=== PATIENT | female | born 1995 | race African-American/Black ===

== ENCOUNTER 2017-01-24 17:14 | Emergency (ER) | payer OTHER ==
[2017-01-24 17:19] VITALS: BP 111/83; PULSE 86; TEMP 98.7; BMI 21.4
[2017-01-24] MEDS ORDERED: ONDANSETRON 4 MG/2 ML VIAL IVPB ONE (17:51)
[2017-01-24 17:54] LABS: PH,URINE 6.5 (4.5-8); URINE APPEARANCE Clear; URINE BILIRUBIN Negative (NEGATIVE); URINE BLOOD Trace-intact (NEGATIVE); URINE GLUCOSE (UA) Negative (NEGATIVE); URINE KETONE Negative (NEGATIVE); URINE LEUK ESTERASE Negative (NEGATIVE); URINE NITRITE Negative (NEGATIVE); URINE PROTEIN Negative (NEGATIVE); URINE UROBILINOGEN 0.2 E.U/dl (0.2-1.0)
--- NOTE | 2017-01-24 17:55 | PDOC ---
History of Present Illness <Miles Ventura - Last Filed: 01/24/17 17:56> - History of Present Illness Initial Comments: 01/24/17 17:56 - History of Present Illness Initial Comments: 01/24/17 17:56 The patient is a 21 year old female, [facility] [facility] [facility] with a significant past medical history of tonsillitis who presents to the emergency department with nausea/vomiting since yesterday. The patient reports yesterday morning waking up with a nauseous feeling that has progressively worsened since its onset. She reports later that night eating baked ziti, and soon after vomiting ( only one episode) her food. She c/o continuing to feel nauseated. She denies recent diarrhea or constipation. She reports her roommate has been having similar symptoms. The patient also has chief complaints of allergies with the development of rashes, watery/itchy eyes,and itchy throat. The patient reports having these symptoms intermittently since September with no alf alleviation. She denies recent fevers, chills, headache or dizziness. Allergies: NKA Past surgical history: None reported. Social history: Current smoker. Denies EtOH use and drug use. <Miles Ventura - Last Filed: 01/24/17 17:56> <Linda Severino - Last Filed: 01/25/17 21:53> - General Chief Complaint: Nausea/Vomiting Stated Complaint: VOMITING,ALLERGY Time Seen by Provider: 01/24/17 17:22 Past History <Miles Ventura - Last Filed: 01/24/17 17:56> - Past Medical History Other medical history: PT DENIES - Psycho/Social/Smoking Cessation Hx Anxiety: No Suicidal Ideation: No Smoking History: Current every day smoker Have you smoked in the past 12 months: No Number of Cigarettes Smoked Daily: 5 Information on smoking cessation initiated: Yes 'Breaking Loose' booklet given: 01/24/17 Hx Alcohol Use: No Drug/Substance Use Hx: No Substance Use Type: None <Linda Severino - Last Filed: 01/25/17 21:53> - Past Medical History Allergies/Adverse Reactions: Allergies Allergy/AdvReac Type Severity Reaction Status Date / Time No Known Allergies Allergy Verified 01/24/17 17:16 Home Medications: Ambulatory Orders Hydrocortisone 1% Cream [Hytone 1% Cream -] 1 applic TP BID #1 tube 01/24/17 *Physical Exam - Vital Signs Last Vital Signs Temp Pulse Resp BP Pulse Ox 98.7 F 86 18 111/83 100 01/24/17 17:16 01/24/17 17:16 01/24/17 17:16 01/24/17 17:16 01/24/17 17:16 <Miles Ventura - Last Filed: 01/24/17 17:56> - Vital Signs Last Vital Signs Temp Pulse Resp BP Pulse Ox 98.7 F 86 18 111/83 100 01/24/17 17:16 01/24/17 17:16 01/24/17 17:16 01/24/17 17:16 01/24/17 17:16 - Physical Exam Comments: 01/24/17 17:52 Physical exam Last Vital Signs Temp Pulse Resp BP Pulse Ox 98.7 F 86 18 111/83 100 01/24/17 17:16 01/24/17 17:16 01/24/17 17:16 01/24/17 17:16 01/24/17 17:16 GENERAL: The patient is awake, alert, and fully oriented, and in no apparent distress. HEAD: Normal with no signs of trauma. EYES: Evidence of chronic ALLERGIC conjunctival reaction ENT: Mucous membranes moist The throat is mildly erythematous, without evidence of uvula edema or edema of the oropharynx NECK: Normal range of motion, supple LUNGS: Breath sounds equal, clear to auscultation bilaterally. No wheezes, and no crackles. HEART: Regular rate and rhythm, normal S1 and S2 without murmur, rub ABDOMEN: The abdomen is soft with normal active bowel sounds There is mild upper midepigastric tenderness to palpation without guarding or rebound No other abdominal tenderness is noted EXTREMITIES: Normal range of motion, no edema. No clubbing or cyanosis. No cords, erythema, or tenderness. NEUROLOGICAL: Cranial nerves II through XII grossly intact. Normal speech, normal gait. PSYCH: Normal mood, normal affect. SKIN: Warm, Dry, a few patches of eczema or noted <Linda Severino - Last Filed: 01/25/17 21:53> ED Treatment Course - LABORATORY CBC & Chemistry Diagram: 01/24/17 18:00 01/24/17 18:00 <Linda Severino - Last Filed: 01/25/17 21:53> Medical Decision Making - Medical Decision Making 01/24/17 17:54 21-year-old female presents with 2 complaints today The first-environmental ALLERGY symptoms, since September consisting of itchy eyes and ALLERGIC conjunctivitis, patchy skin rash/eczema, and occasional itching in the throat The second complaint - 24 hours of nausea, with an episode of vomiting, and some upper midepigastric pain, without diarrhea or fever. Roomate has similar sx 01/24/17 18:55 Laboratory Results - last 24 hr 01/24/17 01/24/17 01/24/17 17:40 17:40 18:00 WBC 9.1 RBC 4.73 Hgb 14.5 Hct 43.0 MCV 91.0 MCHC 33.8 RDW 12.5 Plt Count 228 MPV 9.5 Sodium Potassium Chloride Carbon Dioxide Anion Gap BUN Creatinine Creat Clearance w eGFR Random Glucose Calcium Total Bilirubin AST ALT Alkaline Phosphatase Total Protein Albumin Lipase Urine Color Yellow Urine Appearance Clear Urine pH 6.5 Ur Specific [place] 1.010 Urine Protein Negative Urine Glucose (UA) Negative Urine Ketones Negative Urine Blood Trace-intact Urine Nitrite Negative Urine Bilirubin Negative Urine Urobilinogen 0.2 e.u/dl Ur Leukocyte Esterase Negative Urine HCG, Qual Negative 01/24/17 18:00 WBC RBC Hgb Hct MCV MCHC RDW Plt Count MPV Sodium 134 L Potassium 4.2 Chloride 106 Carbon Dioxide 24 Anion Gap 4 L BUN 12 Creatinine 1.0 Creat Clearance w eGFR > 60 Random Glucose 82 Calcium 9.1 Total Bilirubin 0.7 AST 22 ALT 12 Alkaline Phosphatase 44 Total Protein 7.1 Albumin 4.0 Lipase 31 Urine Color Urine Appearance Urine pH Ur Specific [place] Urine Protein Urine Glucose (UA) Urine Ketones Urine Blood Urine Nitrite Urine Bilirubin Urine Urobilinogen Ur Leukocyte Esterase Urine HCG, Qual 01/24/17 19:15 SIGN OUT Case discussed in detail with oncoming Emergency Physician including history, physical exam and ancillary studies. Oncoming Emergency Physician has assumed care for the patient and will complete the evaluation and treatment. Transfer of care to Dr. Hartman at 7 PM awaiting IV hydration and re-eval <Linda Severino - Last Filed: 01/25/17 21:53> *DC/Admit/Observation/Transfer - Attestations Scribe Attestion: 01/24/17 17:56 Documentation prepared by Miles Ventura, acting as medical scientist for Linda Severino MD. <Miles Ventura - Last Filed: 01/24/17 17:56> <Linda Severino - Last Filed: 01/25/17 21:53> Diagnosis at time of Disposition: Nausea and vomiting, Seasonal allergies - Discharge Dispostion Disposition: HOME Condition at time of disposition: Stable - Prescriptions Prescriptions: Hydrocortisone 1% Cream [Hytone 1% Cream -] 1 applic TP BID #1 tube - Patient Instructions Printed Discharge Instructions: DI for Eye Allergic Reaction, DI for Vomiting - - Adult Additional Instructions: APPLY HYDROCORTISONE CREAM TO RASH TWICE A DAY NEEDED. ZADITOR EYE DROPS ( AVAILABLE OVER THE COUNTER) DIRECTED ON BOTTLE FOR ITCHY EYES. ZYRTEC OR GABY (BOTH AVAILABLE OVER THE COUNTER) FOR ALLERGY SYMPTOMS.
[2017-01-24 17:57] LABS: URINE COLOR YELLOW
[2017-01-24] MEDS ORDERED: SODIUM CHLORIDE 1,000 ML IV SCH (18:00)
[2017-01-24] MEDS ORDERED: ONDANSETRON 4 MG/2 ML VIAL ONE (18:04)
[2017-01-24] MEDS ORDERED: FAMOTIDINE 20 MG/50 ML IVPB 50 ML IVPB ONE ×2 (18:22→18:25)
[2017-01-24 18:33] LABS: ALK PHOS 44 U/L (32-92); ANION GAP 4 (8-16); BILIRUBIN,TOTAL 0.7 mg/dl (0.2-1.0); CALCIUM 9.1 mg/dl (8.4-10.2); CO2 24 mmol/L (22-28); GLUCOSE,RANDOM 82 mg/dl (74-106); SGOT/AST 22 U/L (10-42); SGPT/ALT 12 U/L (10-40); TOT PROT 7.1 g/dl (6.4-8.3)
[2017-01-24 18:36] LABS: MCH 30.7 pg (25.7-33.7); MCHC 33.8 g/dl (32.0-36.0); MEAN PLT VOLUME 9.5 fl (7.5-11.1); PLATELET COUNT 228 K/MM3 (134-434); RDW 12.5 % (11.6-15.6); WHITE BLOOD COUNT 9.1 K/mm3 (4.0-10.0)
--- NOTE | 2017-01-24 19:38 | PDOC ---
*Physical Exam - Vital Signs Last Vital Signs Temp Pulse Resp BP Pulse Ox 98.7 F 86 18 111/83 100 01/24/17 17:16 01/24/17 17:16 01/24/17 17:16 01/24/17 18:12 01/24/17 17:16 ED Treatment Course - LABORATORY CBC & Chemistry Diagram: 01/24/17 18:00 01/24/17 18:00 - ADDITIONAL ORDERS Additional order review: Laboratory Results 01/24/17 01/24/17 01/24/17 18:00 17:40 17:40 Sodium 134 L Potassium 4.2 Chloride 106 Carbon Dioxide 24 Anion Gap 4 L BUN 12 Creatinine 1.0 Creat Clearance w eGFR > 60 Random Glucose 82 Calcium 9.1 Total Bilirubin 0.7 AST 22 ALT 12 Alkaline Phosphatase 44 Total Protein 7.1 Albumin 4.0 Lipase 31 Urine Color Yellow Urine Appearance Clear Urine pH 6.5 Ur Specific [place] 1.010 Urine Protein Negative Urine Glucose (UA) Negative Urine Ketones Negative Urine Blood Trace-intact Urine Nitrite Negative Urine Bilirubin Negative Urine Urobilinogen 0.2 e.u/dl Ur Leukocyte Esterase Negative Urine HCG, Qual Negative 01/24/17 18:00 RBC 4.73 MCV 91.0 MCHC 33.8 RDW 12.5 MPV 9.5 - Medications Given in the ED: ED Medications Discontinued Medications Generic Name Dose Route Start Last Admin Trade Name Catrachoq PRN Reason Stop Dose Admin Famotidine/Sodium Chloride 50 mls @ 100 mls/hr 01/24/17 18:22 01/24/17 18:28 Pepcid 20 Mg Premixed Ivpb - IVPB 01/24/17 18:51 100 mls/hr ONCE ONE Administration Ondansetron HCl 4 mg 01/24/17 17:51 01/24/17 18:11 Zofran Injection IVPB 01/24/17 17:52 4 mg ONCE ONE Administration Medical Decision Making - Medical Decision Making Pt endorsed to me by Dr. Alvarado at 7pm shift change. Labs with no acute findings. Patient reports improvement in her symptoms. She has been able to tolerate PO challenge. Stable for DC home with bland diet. Will give her rx for hydrocortisone cream for her allergic rash, as well as information for zaditor drops and zyrtec or gaby for her seasonal allergic symptoms. *DC/Admit/Observation/Transfer Diagnosis at time of Disposition: Nausea and vomiting Qualifiers: Vomiting type: unspecified Vomiting Intractability: non-intractable Qualified Code(s): R11.2 - Nausea with vomiting, unspecified Seasonal allergies Qualifiers: Allergic rhinitis trigger: unspecified Qualified Code(s): J30.2 - Other seasonal allergic rhinitis - Discharge Dispostion Disposition: HOME Condition at time of disposition: Stable Admit: No - Prescriptions Prescriptions: Hydrocortisone 1% Cream [Hytone 1% Cream -] 1 applic TP BID #1 tube - Patient Instructions Printed Discharge Instructions: DI for Eye Allergic Reaction, DI for Vomiting - - Adult Additional Instructions: APPLY HYDROCORTISONE CREAM TO RASH TWICE A DAY NEEDED. ZADITOR EYE DROPS ( AVAILABLE OVER THE COUNTER) DIRECTED ON BOTTLE FOR ITCHY EYES. ZYRTEC OR GABY (BOTH AVAILABLE OVER THE COUNTER) FOR ALLERGY SYMPTOMS.
== END 2017-01-24 19:57 | disposition home or self-care (01) ==
LOC: FER 17:14
PROC: 3E033GC Introduction of Other Therapeutic Substance into Peripheral Vein, Percutaneous Approach (ICD-10-PCS; principal; 2017-01-24)
DX: R11.2 Nausea with vomiting, unspecified (principal); J30.2 Other seasonal allergic rhinitis; F17.210 Nicotine dependence, cigarettes, uncomplicated
CPT/HCPCS: 36415; 80053; 81003; 83690; 84703; 85027; 96365; 96375; 99283-25

== ENCOUNTER 2017-08-07 23:04 | Emergency (ER) | payer OTHER ==
--- NOTE | 2017-08-07 23:07 | PDOC ---
History of Present Illness - General Chief Complaint: Pain, Acute Stated Complaint: ABDOMINAL PAIN Time Seen by Provider: 08/07/17 23:06 History Source: Patient Exam Limitations: No Limitations - History of Present Illness Initial Comments: 08/07/17 23:24 This is a 21-year-old female who comes in complaining of shortness of breath and abdominal pain. Patient said that she has a history of asthma and ran out of her inhaler. In addition to that patient said that she has had intermittent episodes of right lower quadrant abdominal pain times several months. Patient has not seen anybody or followed up regarding the pain. Patient said it occurs 2 -3 times a month is sharp in nature and lasts from a few minutes to several hours. Patient said that it is not associated with any nausea vomiting or diarrhea. However patient said that today she did have some nausea. Patient denies any fevers or chills. Patient is otherwise healthy. Patient is sexually active. Patient said however she has not had sex in approximately 2 months. She denies any vaginal discharge, vaginal odor or history of STDs in the past. PAST MEDICAL HISTORY: no significant history PAST SURGICAL HISTORY: no significant history FAMILY HISTORY: no pertinant history SOCIAL HISTORY: Pt lives with family and is employed. MEDICATIONS: reviewed ALLERGIES: As per nursing notes Review of Systems General: No fevers or chills, no weakness, no weight loss HEENT: No change in vision. No sore throat,. No ear pain CardioVascular: No chest pain wheezing but no shortness of breath. Respiratory:No cough, or wheezing. Gastrointestinal: no nausea, vomitting, diarrhea or constipation, No rectal bleeding, lower abdominal pain Genitourinary: No dysuria, hematuria, or frequency Musculoskeletal: No joint or muscle pain or swelling Neurologic: No headache, vertigo, dizziness or loss of consciousness Psychiatric: nor depression Skin: No rashes or easy bruising Endocrine: no increased thirst or abnormal weight change Allergic: no skin or latex allergy All other systems reviewed and normal Exam: General: Well-nourished well-developed individual, no acute distress HEENT: Throat: Normal, tonsils normal, no erythema or exudate Neck: Supple, no meningeal signs, no lymphadenopathy Eyes::Pupils equal reactive and round, extraocular motion intact Chest: Nontender to palpation Cardiac: S1-S2 normal, regular rate and rhythm, no murmurs rubs or gallops Respiratory there is some mild expiratory wheeze bilateral bases of lungs Abdomen: Soft, nondistended, normal bowel sounds, tenderness on palpation over the right adnexa area. There is no guarding or rebound. Pelvic exam: There is a moderate amount of whitish discharge, there is some mild cervical motion tenderness with mild left adnexal tenderness but no adnexal masses. Extremities: Warm, dry, no cyanosis, clubbing, or edema Skin: No rashes Neuro: Alert and oriented x3, nonfocal exam, grossly intact, normal gait Psych: Normal mood and affect 08/08/17 01:55 Ultrasound no acute pathology CAT scan normal appendix no acute pathology Assessment and plan: This is 21-year-old female who's comes in complaining of right lower abdominal pain. On pelvic exam patient did have some mild cervical motion tenderness and adnexal discomfort. Patient did have a moderate amount of discharge so was treated H Alonso for presumptive STD. Patient otherwise had a normal workup. Patient discharged home and told to follow-up with her OB if symptoms persisted. Past History - Past Medical History Allergies/Adverse Reactions: Allergies Allergy/AdvReac Type Severity Reaction Status Date / Time No Known Allergies Allergy Verified 08/07/17 23:06 Home Medications: Ambulatory Orders Albuterol Sulfate Inhaler - [Ventolin Hfa Inhaler -] 2 inh PO Q4H 08/07/17 - Suicide/Smoking/Psychosocial Hx Smoking History: Current every day smoker Have you smoked in the past 12 months: No Number of Cigarettes Smoked Daily: 5 'Breaking Loose' booklet given: 01/24/17 Hx Alcohol Use: No Drug/Substance Use Hx: No Substance Use Type: None ED Treatment Course - LABORATORY CBC & Chemistry Diagram: 08/07/17 23:26 08/07/17 23:26 *DC/Admit/Observation/Transfer Diagnosis at time of Disposition: Pain in pelvis - Discharge Dispostion Disposition: HOME Condition at time of disposition: Stable - Patient Instructions Additional Instructions: Your symptoms most likely are secondary to chlamydia infection as your ultrasound and CAT scan were otherwise normal. It is important that you follow-up with your OB if your symptoms continue or worsen. Return to the emergency department immediately with ANY new, persistent or worsening symptoms. Continue any medications as previously prescribed by your physician. You should follow up with your OB doctor as soon as possible regarding today's emergency department visit. . Please make sure your doctor reviews the results of your emergency evaluation. Thank you for coming to the Emergency Department today for your care. It was a pleasure to see you today. Please note that your evaluation is INCOMPLETE until you follow-up with your doctor.
[2017-08-07 23:12] VITALS: BP 103/72; PULSE 67; TEMP 98.4; BMI 20.9
[2017-08-07 23:21] LABS: URINE APPEARANCE Clear; URINE BILIRUBIN Negative (NEGATIVE); URINE BLOOD Negative (NEGATIVE); URINE COLOR YELLOW; URINE GLUCOSE (UA) Negative (NEGATIVE); URINE KETONE Negative (NEGATIVE); URINE LEUK ESTERASE Negative (NEGATIVE); URINE NITRITE Negative (NEGATIVE); URINE PROTEIN Trace (NEGATIVE); URINE UROBILINOGEN 0.2 (0.2-1.0)
[2017-08-07] MEDS ORDERED: ALBUTEROL SO4 2.5/IPRATROPIUM 0.5 INH SOL 3 ML VIAL.NEB. NEB ONE (23:41)
[2017-08-07 23:44] LABS: NEUTROPHILS 66.1 % (42.8-82.8); RDW 12.6 % (11.6-15.6)
[2017-08-07 23:47] LABS: EOSINOPHIL 1.2 % (0-4.5); MCH 30.5 pg (25.7-33.7); MCHC 33.3 g/dl (32.0-36.0); MEAN CELL VOLUME 91.8 fl (80-96); MEAN PLT VOLUME 8.9 fl (7.5-11.1); PLATELET COUNT 239 K/MM3 (134-434); WHITE BLOOD COUNT 12.9 K/mm3 (4.0-10.8)
[2017-08-07 23:55] LABS: ALK PHOS 41 U/L (32-92)
[2017-08-08 00:02] LABS: ALBUMIN 3.7 g/dl (3.5-5.0); ANION GAP 8 (8-16); BILIRUBIN,TOTAL 0.7 mg/dl (0.2-1.0); CALCIUM 8.8 mg/dl (8.4-10.2); CO2 22 mmol/L (22-28); GLUCOSE,RANDOM 99 mg/dl (74-106); SGOT/AST 15 U/L (10-42); SGPT/ALT 11 U/L (10-40); TOT PROT 6.5 g/dl (6.4-8.3)
[2017-08-08] MEDS ORDERED: SODIUM CHLORIDE 1,000 ML IV ONE (00:45)
[2017-08-08] MEDS ORDERED: CEFTRIAXONE 500 MG in DEXTROSE 5%-WATER - 50 ML IVPB ONE (01:05)
[2017-08-08] MEDS ORDERED: AZITHROMYCIN 1 GM PACKET PO ONE (01:06)
== END 2017-08-08 02:01 | disposition home or self-care (01) ==
LOC: FER 23:04
PROC: 3E0F7GC Introduction of Other Therapeutic Substance into Respiratory Tract, Via Natural or Artificial Opening (ICD-10-PCS; principal; 2017-08-07)
PROC: 3E03329 Introduction of Other Anti-infective into Peripheral Vein, Percutaneous Approach (ICD-10-PCS; 2017-08-07)
PROC: 3E0337Z Introduction of Electrolytic and Water Balance Substance into Peripheral Vein, Percutaneous Approach (ICD-10-PCS; 2017-08-07)
DX: R10.2 Pelvic and perineal pain (principal); J45.909 Unspecified asthma, uncomplicated; F17.210 Nicotine dependence, cigarettes, uncomplicated
CPT/HCPCS: 36415; 74176-TC; 76856-TC; 80053; 81003; 84703; 85025; 87491; 87591; 99281-25

== ENCOUNTER 2017-09-21 16:42 | Emergency (ER) | payer OTHER ==
[2017-09-21] MEDS ORDERED: ALBUTEROL SO4 2.5/IPRATROPIUM 0.5 INH SOL 3 ML VIAL.NEB. NEB ONE ×2 (16:50→17:24)
[2017-09-21] MEDS ORDERED: ALBUTEROL SO4 0.083% IH SOL 2.5 MG/3 ML VIAL.NEB. NEB ONE (16:51)
--- NOTE | 2017-09-21 16:57 | PDOC ---
History of Present Illness - General History Source: Patient Exam Limitations: No Limitations - History of Present Illness Initial Comments: 09/21/17 17:25 The patient is a 21 year old female with past medical history of chronic bronchitis who presents to the ED with complaints of shortness of cough breath that began today. The patient states her [place] the train where she began coughing so much that she almost passed out. She reports her cough as productive and is producing clear sputum. She reports being out of her albuterol inhaler and nebulizer. She states that she also smokes marijuana 3x a day. The patient denies any other complaints. She states she does not have a PCP. <Christina Rubio - Last Filed: 09/21/17 17:34> <Darinel Sneed - Last Filed: 09/21/17 17:52> - General Chief Complaint: Cold Symptoms Stated Complaint: SOB Past History <Christina Rubio - Last Filed: 09/21/17 17:34> - Past Medical History Asthma: Yes - Suicide/Smoking/Psychosocial Hx Smoking History: Current every day smoker Have you smoked in the past 12 months: No Number of Cigarettes Smoked Daily: 5 'Breaking Loose' booklet given: 01/24/17 Hx Alcohol Use: No Drug/Substance Use Hx: No Substance Use Type: None <Darinel Sneed - Last Filed: 09/21/17 17:52> - Past Medical History Allergies/Adverse Reactions: Allergies Allergy/AdvReac Type Severity Reaction Status Date / Time No Known Allergies Allergy Verified 08/07/17 23:06 Home Medications: Ambulatory Orders Albuterol Sulfate Inhaler - [Ventolin Hfa Inhaler -] 2 inh PO Q4H 08/07/17 Albuterol Sulfate Inhaler - [Ventolin HFA Inhaler -] 1 - 2 inh PO Q4H #1 inhaler 08/08/17 Albuterol 0.083% Nebulizer Tiera [Ventolin 0.083% Nebulizer Soln -] 1 neb NEB Q4H #120 vial 09/21/17 Albuterol Sulfate Inhaler - [Ventolin HFA Inhaler -] 1 - 2 inh PO QID #1 inhaler 09/21/17 Azithromycin [Zithromax -] 250 mg PO UTDICT #6 tab 09/21/17 Methylprednisolone [Medrol Dose Daniel] 4 mg PO ASDIR #21 tablet 12/01/17 Review of Systems - Review of Systems Able to Perform ROS?: Yes Comments:: 09/21/17 17:25 GENERAL/CONSTITUTIONAL: No fever or chills. No weakness. HEAD, EYES, EARS, NOSE AND THROAT: No change in vision. No ear pain or discharge. No sore throat. CARDIOVASCULAR: No chest pain or shortness of breath. RESPIRATORY: Present: cough, shortness of breath No hemoptysis. GASTROINTESTINAL: No nausea, vomiting, diarrhea or constipation. GENITOURINARY: No dysuria, frequency, or change in urination. MUSCULOSKELETAL: No joint or muscle swelling or pain. No neck or back pain. SKIN: No rash NEUROLOGIC: No headache, vertigo, loss of consciousness, or change in strength/ sensation. ENDOCRINE: No increased thirst. No abnormal weight change. HEMATOLOGIC/LYMPHATIC: No anemia, easy bleeding, or history of blood clots. ALLERGIC/IMMUNOLOGIC: No hives or skin allergy. All Other Systems: Reviewed and Negative <Christina Rubio - Last Filed: 09/21/17 17:34> *Physical Exam - Vital Signs Last Vital Signs Temp Pulse Resp BP Pulse Ox 98.1 F 97 H 20 104/67 98 09/21/17 16:43 09/21/17 16:43 09/21/17 16:43 09/21/17 16:43 09/21/17 16:43 - Physical Exam Comments: 09/21/17 17:26 GENERAL: Awake, alert, and fully oriented, in no acute distress HEAD: No signs of trauma EYES: PERRLA, EOMI, sclera anicteric, conjunctiva clear ENT: Auricles normal inspection, hearing grossly normal, nares patent, oropharynx clear without exudates. Moist mucosa NECK: Normal ROM, supple, no lymphadenopathy, JVD, or masses LUNGS: Coarse breath sounds, wheezing throughout all lung lopez. Breath sounds equal. No crackles HEART: Regular rate and rhythm, normal S1 and S2, no murmurs, rubs or gallops ABDOMEN: Soft, nontender, normoactive bowel sounds. No guarding, no rebound. No masses EXTREMITIES: Normal range of motion, no edema. No clubbing or cyanosis. No cords, erythema, or tenderness NEUROLOGICAL: Cranial nerves II through XII grossly intact. Normal speech, normal gait SKIN: Warm, Dry, normal turgor, no rashes or lesions noted. <Christina Rubio - Last Filed: 09/21/17 17:34> Medical Decision Making - Medical Decision Making 09/21/17 17:45 Discussed with patient the need for a primary care doctor, she can not expect the ED to keep writing refills for her while she is attending [facility]. She says she understands and will call the number on the back of her card to find one. Will treat with medrol dose pack and z-pack. Refilled her Albuterol pump and nebules <Darinel Sneed - Last Filed: 09/21/17 17:52> *DC/Admit/Observation/Transfer - Attestations Scribe Attestion: 09/21/17 17:27 Documentation prepared by Christina Rubio, acting as emergency medical services coordinator for Darinel Sneed DO. <Christina Rubio - Last Filed: 09/21/17 17:34> - Discharge Dispostion Admit: No - Attestations Physician Attestion: 09/21/17 16:56 I, Dr. Darinel Sneed, attest that this document has been prepared under my direction and personally reviewed by me in its entirety. I further attest, that it accurately reflects all work, treatment, procedures and medical decision -making performed by me. <Darinel Sneed - Last Filed: 09/21/17 17:52> Diagnosis at time of Disposition: Bronchitis, History of asthma Seasonal allergies Qualifiers: Chronicity: unspecified Allergic rhinitis trigger: unspecified Qualified Code(s ): J30.2 - Other seasonal allergic rhinitis - Discharge Dispostion Disposition: HOME Condition at time of disposition: Improved - Prescriptions Prescriptions: Albuterol 0.083% Nebulizer Tiera [Ventolin 0.083% Nebulizer Soln -] 1 neb NEB Q4H #120 vial Albuterol Sulfate Inhaler - [Ventolin HFA Inhaler -] 1 - 2 inh PO QID #1 inhaler Azithromycin [Zithromax -] 250 mg PO UTDICT #6 tab Methylprednisolone [Medrol Dose Daniel] 4 mg PO ASDIR #21 tablet - Referrals Referrals: Jero Ivy MD [Staff Physician] - Gomez Vela [Non Staff, Medical] - Jennifer Castellanos MD [Staff Physician] - Linda Garner MD [Staff Physician] - Jennifer Johnson MD [Staff Physician] - - Patient Instructions Printed Discharge Instructions: DI for Acute Bronchitis Additional Instructions: Robertyanah- Cut back on the smoking and use the inhaler or nebulizer as needed. Take the zithromax and the medrol for five days as directed. Return to us if worse. Follow up with one of the many doctors I referred you to. One of them or even all of them probably take your insurance. Best- DR. Darinel Sened
[2017-09-21 17:17] VITALS: BP 104/67; PULSE 97; TEMP 98.1; BMI 20.5
[2017-09-21] MEDS ORDERED: methylPREDNISolone NA SUCC 125 MG/2 ML VIAL IM ONE (17:23)
[2017-09-21] MEDS ORDERED: AZITHROMYCIN 250 MG TABLET PO ONE (17:24)
[2017-09-21] MEDS ORDERED: ALBUTEROL SO4 0.083% IH SOL 2.5 MG/3 ML VIAL.NEB. NEB PRN (17:25)
[2017-09-21] MEDS ORDERED: ALBUTEROL SO4 18 GM HFA INHALER IH PRN (17:25)
[2017-09-21] MEDS ORDERED: methylPREDNISolone NA SUCC 125 MG/2 ML VIAL ONE (18:03)
[2017-09-21] MEDS ORDERED: AZITHROMYCIN 500 MG TABLET ONE (18:04)
== END 2017-09-21 18:15 | disposition home or self-care (01) ==
LOC: FER 16:42
PROC: 3E0F7GC Introduction of Other Therapeutic Substance into Respiratory Tract, Via Natural or Artificial Opening (ICD-10-PCS; principal; 2017-09-21)
PROC: 3E033GC Introduction of Other Therapeutic Substance into Peripheral Vein, Percutaneous Approach (ICD-10-PCS; 2017-09-21)
DX: J40 Bronchitis, not specified as acute or chronic (principal); J30.2 Other seasonal allergic rhinitis; F17.210 Nicotine dependence, cigarettes, uncomplicated
CPT/HCPCS: 94640; 96372; 99281-25

== ENCOUNTER 2018-01-29 19:27 | Emergency (ER) | payer SELFPAY ==
[2018-01-29 19:46] VITALS: BP 96/67; PULSE 95; TEMP 98.3
--- NOTE | 2018-01-29 20:01 | PDOC ---
History of Present Illness - History of Present Illness Initial Comments: 01/29/18 20:35 Patient is a 22 F, with PMHx of asthma , who presents with chronic abdominal pain and respiratory issue. She comes in complaining of subjective fever, chills, and cough with clear sputum last week, that have since subsided. Patient states that she has been feeling underwater for a week and a half and is struggling to breathe. She states she ran out of her albuterol 1 week ago. She states she ran out of prednisone in November. After she eats, she reports feeling nauseous with mid-epigastric pain. She states she sometimes dry heaves with foamy vomit. She states she goes to [facility] in the [place] for care and does not have a primary care doctor. She denies any urinary complaints. Reports normal BM. PAST MEDICAL HISTORY: no significant history PAST SURGICAL HISTORY: no significant history FAMILY HISTORY: no pertinent history SOCIAL HISTORY: smokes marijuana. MEDICATIONS: reviewed ALLERGIES: As per nursing notes ROS General: +subjective fevers & chills, no weakness, no weight loss HEENT: No change in vision. No sore throat,. No ear pain CardioVascular: No chest pain. + diffculty breathing. Respiratory: +cough with clear sputum, no wheezing. Gastrointestinal: +abdominal pain, + nausea. No diarrhea or constipation, No rectal bleeding Genitourinary: No dysuria, hematuria, or frequency Musculoskeletal: No joint or muscle pain or swelling Neurologic: No headache, vertigo, dizziness or loss of consciousness Psychiatric: No depression Skin: No rashes or easy bruising Endocrine: No increased thirst or abnormal weight change Allergic: No skin or latex allergy All other systems reviewed and normal Exam: General: Well-nourished well-developed individual, no acute distress HEENT: Throat: Normal, tonsils normal, no erythema or exudate Neck: Supple, no meningeal signs, no lymphadenopathy Eyes::Pupils equal reactive and round, extraocular motion intact Chest: Nontender to palpation Cardiac: S1-S2 normal, regular rate and rhythm, no murmurs rubs or gallops Respiratory: Lungs clear to auscultation bilateral Abdomen: Soft, nondistended, normal bowel sounds, nontender to palpation diffusely Extremities: Warm, dry, no cyanosis, clubbing, or edema Skin: No rashes Neuro: Alert and oriented x3, nonfocal exam, grossly intact, normal gait Psych: Normal mood and affect <Veronica Price - Last Filed: 01/29/18 20:35> - General History Source: Patient Exam Limitations: No Limitations - History of Present Illness Initial Comments: A portion of this note was documented by scribe services under my direction. I have reviewed the details of the note, within reason, and agree with the documentation. The case summary and management plan written by me. 01/29/18 20:55 Assessment and plan: This is a 22-year-old female who comes in complaining of sensation of shortness of breath secondary to running out of her albuterol inhaler. However on exam patient's lungs were clear and she was in no acute distress. Her O2 sat was normal and her respiratory rate was 16. A chest x-ray that was done that was negative for any acute pathology Patient in addition to that was complaining of some chronic GI issues times several months. However patient does smoke marijuana several times a day on a daily basis. I recommended the patient stop her marijuana use to see if her GI issues improve and if not I have given her follow-up to Dr. Pierre as she does not have a primary care doctor and does need a primary care doctor <Raquel Deluna I - Last Filed: 01/29/18 20:59> - General Chief Complaint: Pain Stated Complaint: CHRONIC STOMACH PAIN/LUNG PROBLEM Time Seen by Provider: 01/29/18 19:40 Past History <Veronica Price - Last Filed: 01/29/18 20:35> - Past Medical History Asthma: Yes COPD: No - Suicide/Smoking/Psychosocial Hx Smoking History: Never smoked Have you smoked in the past 12 months: No Number of Cigarettes Smoked Daily: 5 'Breaking Loose' booklet given: 09/21/17 Hx Alcohol Use: No Drug/Substance Use Hx: Yes (MARIJUANA) Substance Use Type: Marijuana <Raquel Deluna I - Last Filed: 01/29/18 20:59> - Past Medical History Allergies/Adverse Reactions: Allergies Allergy/AdvReac Type Severity Reaction Status Date / Time No Known Allergies Allergy Verified 01/29/18 19:37 Home Medications: Ambulatory Orders Albuterol Sulfate Inhaler - [Ventolin Hfa Inhaler -] 1 - 2 inh PO Q4H #1 inhaler 01/29/18 Review of Systems - Review of Systems Comments:: 01/29/18 20:37 see HPI <Veronica Price - Last Filed: 01/29/18 20:35> *Physical Exam - Vital Signs Last Vital Signs Temp Pulse Resp BP Pulse Ox 98.3 F 95 H 16 96/67 99 01/29/18 19:35 01/29/18 19:35 01/29/18 19:35 01/29/18 19:35 01/29/18 19:35 - Physical Exam Comments: 01/29/18 20:37 see HPI <Veronica Price - Last Filed: 01/29/18 20:35> - Vital Signs Last Vital Signs Temp Pulse Resp BP Pulse Ox 98.3 F 95 H 16 96/67 99 01/29/18 19:35 01/29/18 19:35 01/29/18 19:35 01/29/18 19:35 01/29/18 19:35 <Raquel Deluna I - Last Filed: 01/29/18 20:59> *DC/Admit/Observation/Transfer - Attestations Scribe Attestion: 01/29/18 20:37 Documentation prepared by Veronica Price, acting as biomedical engineer for Raquel Deluna MD. <Veronica Price - Last Filed: 01/29/18 20:35> - Discharge Dispostion Admit: No <Raquel Deluna I - Last Filed: 01/29/18 20:59> Diagnosis at time of Disposition: Medication refill, Marijuana dependence - Discharge Dispostion Disposition: HOME Condition at time of disposition: Good - Prescriptions Prescriptions: Albuterol Sulfate Inhaler - [Ventolin Hfa Inhaler -] 1 - 2 inh PO Q4H #1 inhaler - Patient Instructions Additional Instructions: I sent a prescription to your pharmacy for albuterol get it filled and take it as directed for your shortness of breath. Also stop your marijuana use and see if it improves your stomach complaints. Call Dr. Pierre for an appointment and follow-up with her for your medical problems, Return to the emergency department immediately with ANY new, persistent or worsening symptoms. Continue any medications as previously prescribed by your physician. You should follow up with your primary doctor as soon as possible regarding today's emergency department visit. . Please make sure your doctor reviews the results of your emergency evaluation. Thank you for coming to the Emergency Department today for your care. It was a pleasure to see you today. Please note that your evaluation is INCOMPLETE until you follow-up with your doctor.
== END 2018-01-29 21:26 | disposition home or self-care (01) ==
LOC: FER 19:27
DX: Z76.0 Encounter for issue of repeat prescription (principal); F12.20 Cannabis dependence, uncomplicated; J45.909 Unspecified asthma, uncomplicated
CPT/HCPCS: 71046-TC-FY; 84703; 99282-25